=== PATIENT | male | born 1950 | race American Indian/Alaskan Native ===

== ENCOUNTER 2021-05-16 20:33 | Inpatient (IN) | payer MEDICARE, OTHER ==
[~2021-05-16] VITALS: Ht 165.1 cm; Wt 81.6 kg
[2021-05-16] MEDS ORDERED: ACETAMINOPHEN 325MG TABLET PO STA (21:59)
[2021-05-16] MEDS ORDERED: SODIUM CHLORIDE 0.9% 1000ML BAG (SEPSIS BOLUS) IV ONE (22:00)
[2021-05-16] MEDS ORDERED: AZITHROMYCIN 500 MG in DEXT 5% WATER 250 ML IV ONE (22:00)
[2021-05-16] MEDS ORDERED: CEFTRIAXONE 1 G PREMIX 50 ML IV ONE (22:00)
[2021-05-17] VITALS (22 sets, daily range): BP systolic 100–149; BP diastolic 57–78
[2021-05-17 00:09] LABS: BASOPHILS % 0.3 % (0.0-2.0); EOSINOPHILS % 0.4 % (0.0-5.0); HEMATOCRIT. 32.8 % (42.0-52.0); HEMOGLOBIN. 10.6 g/dL (14.0-18.0); LYMPHOCYTES % 16.7 % (20.0-50.0); MEAN CORPUSCULAR HEMOGLOBIN 32.7 pg (28.0-32.0); MEAN PLATELET VOLUME 8.5 fl (7.4-10.4); MONOCYTES % 9.7 % (2.0-8.0); NEUTROPHILS % 72.9 % (40.0-76.0); PLATELET 180 x1000/uL (130-400); RED BLOOD CELL COUNT 3.25 mill/uL (4.7-6.1); RED CELL DISTRIBUTION WIDTH 15.5 % (11.6-14.6)
[2021-05-17 00:19] LABS: INR 1.1; PROTHROMBIN TIME 11.8 sec (9.6-11.0)
[2021-05-17 00:25] LABS: CHLORIDE 110 mEq/L (98-107)
[2021-05-17] MEDS ORDERED: LIDOCAINE HCL 1% 20ML VIAL (Pyxis) INJ INFIL ONE (01:00)
[2021-05-17] MEDS ORDERED: DEXTROSE 50% WATER 50ML SYRINGE IV ONE (01:00)
[2021-05-17] MEDS ORDERED: CALCIUM GLUCONATE 1GM PREMIX 50 ML IV ONE (01:00)
[2021-05-17] MEDS ORDERED: ALBUTEROL (0.083%) 2.5MG/3ML NEB HHN ONE (01:00)
[2021-05-17] MEDS ORDERED: SODIUM BICARBONATE 8.4% 1 MEQ/ML 50ML SYR IV ONE (01:00)
[2021-05-17] MEDS ORDERED: INSULIN REGULAR (HUMULIN R) 300UNITS/3ML VIAL IV ONE (01:00)
[2021-05-17] MEDS ORDERED: SODIUM BICARBONATE 8.4% 1 MEQ/ML 50ML SYR IV SCH (02:00)
[2021-05-17] MEDS ORDERED: SODIUM BICARBONATE 100 MEQ in DEXTROSE 5% WATER 1,000 ML IV SCH (03:00)
[2021-05-17 03:42] LABS: BG BASE EXCESS -13.6 mmol/L (-2.0-2.0); BG CARBOXYHEMOGLOBIN 0.3 % (0.5-1.5); BG HCO3 ACT 12.5 mmol/L (22.0-26.0); BG METHEMOGLOBIN 0.3 % (0.0-1.5); BG OXYHEMOGLOBIN 92.4 % (94.0-97.0); BG PCO2 29.7 mmHg (35.0-45.0); BG PH 7.241 (7.350-7.450); BG PO2 72.2 mmHg (75.0-100.0); BG SAMPLE SITE RIGHT BRACHIAL; BG TOTAL HEMOGLOBIN 9.9 g/dL (12.0-18.0); BG VENT MODE ROOM AIR
[2021-05-17 04:01] LABS: PHOSPHORUS 11.4 mg/dL (2.5-4.9)
[2021-05-17 04:33] LABS: PROSTRATE SPECIFIC AG TOTAL 10.15 ng/mL (0.0-4.0)
[2021-05-17] MEDS ORDERED: SODIUM BICARBONATE 8.4% MEQ/ML 50ML VIAL IV ONE (04:47)
[2021-05-17] MEDS ORDERED: NOREPINEPHRINE 8 MG in DEXTROSE 5% WATER 250 ML IV PRN (05:30)
[2021-05-17 05:36] LABS: CLARITY URINE CLEAR (CLEAR); COLOR URINE YELLOW (YELLOW); KETONES URINE TRACE (NEGATIVE); LEUKOCYTE ESTERASE URINE NEGATIVE (NEGATIVE); NITRITE URINE NEGATIVE (NEGATIVE); OCCULT BLOOD URINE 1+ (NEGATIVE); PROTEIN URINE 1+ (NEGATIVE); SPECIFIC GRAVITY URINE 1.017 (1.005-1.030)
[2021-05-17] MEDS ORDERED: ALBUTEROL (0.083%) 2.5MG/3ML NEB HHN SCH (06:00)
[2021-05-17 07:29] LABS: HEPATITIS B SURFACE ANTIGEN NEGATIVE
[2021-05-17] MEDS ORDERED: LORAZEPAM 2MG/ML CPJ IV NR (09:45)
[2021-05-17] MEDS ORDERED: LIDOCAINE HCL 1% 20ML VIAL (Pyxis) INJ ONE (09:57)
[2021-05-17] MEDS ORDERED: LISI20TA31 PO (18:38)
[2021-05-17] MEDS ORDERED: FURO20TA4 PO (18:38)
[2021-05-17] MEDS ORDERED: ALLO100T PO (18:38)
[2021-05-17] MEDS ORDERED: SERT-112 PO (18:38)
[2021-05-17] MEDS ORDERED: ATOR-2 PO (18:38)
[2021-05-17] MEDS: SODIUM BICARBONATE 100 MEQ in DEXTROSE 5% WATER 1,000 ML IV SCH (22:34)
[2021-05-18] VITALS (12 sets, daily range): BP systolic 114–153; BP diastolic 69–84
[2021-05-18] MEDS: SODIUM BICARBONATE 100 MEQ in DEXTROSE 5% WATER 1,000 ML IV SCH (07:00)
[2021-05-18 07:20] LABS: BASOPHILS % 0.2 % (0.0-2.0); EOSINOPHILS % 0.9 % (0.0-5.0); HEMATOCRIT. 28.7 % (42.0-52.0); HEMOGLOBIN. 9.9 g/dL (14.0-18.0); LYMPHOCYTES % 15.5 % (20.0-50.0); MEAN CORPUSCULAR HEMOGLOBIN 33.1 pg (28.0-32.0); MEAN CORPUSCULAR VOLUME 95.6 fL (80.0-94.0); MEAN PLATELET VOLUME 8.1 fl (7.4-10.4); MONOCYTES % 14.4 % (2.0-8.0); PLATELET 141 x1000/uL (130-400); RED CELL DISTRIBUTION WIDTH 14.9 % (11.6-14.6)
[2021-05-18] MEDS ORDERED: POTASSIUM CHLORIDE 20MEQ/PACKET PO NR (11:15)
[2021-05-18] MEDS: SODIUM CHLORIDE 0.9% 1,000 ML IV SCH ×2 (11:55→21:00)
[2021-05-18] MEDS ORDERED: LACTULOSE 20G/30ML UDC PO PRN (13:45)
[2021-05-18] MEDS ORDERED: HYDRALAZINE 20MG/ML VIAL IV PRN (13:45)
[2021-05-18] MEDS ORDERED: ACETAMINOPHEN 650MG SUPP PR PRN (13:45)
[2021-05-18] MEDS ORDERED: ONDANSETRON HCL 4MG/2ML INJ IV PRN (13:45)
[2021-05-18] MEDS ORDERED: BISACODYL 10MG SUPP PR PRN (13:45)
[2021-05-18] MEDS ORDERED: IPRATROPIUM/ALBUTEROL 0.5-3(2.5)MG/3ML NEB HHN PRN (13:45)
[2021-05-18] MEDS ORDERED: DIPHENHYDRAMINE 50MG/ML VIAL IV PRN (13:45)
[2021-05-18] MEDS ORDERED: NALOXONE HCL 0.4MG/ML VIAL IV PRN (14:15)
[2021-05-18] MEDS: HYDROCODONE/ACETAMINOPHEN 5/325MG TABLET PO PRN (14:24)
[2021-05-18] MEDS: AMLODIPINE 5MG TABLET PO SCH (14:25)
[2021-05-18] MEDS: FAMOTIDINE 20MG TABLET PO SCH (20:59)
[2021-05-19] VITALS (12 sets, daily range): BP systolic 122–144; BP diastolic 62–91
[2021-05-19] MEDS: CEFTRIAXONE 1,000 MG in DEXTROSE 5% WATER 50 ML IV SCH ×2 (00:49→23:23)
[2021-05-19] MEDS: ACETAMINOPHEN 325MG TABLET PO PRN ×2 (03:46→09:10)
[2021-05-19] MEDS: HYDROCODONE/ACETAMINOPHEN 5/325MG TABLET PO PRN (07:30)
[2021-05-19] MEDS: SODIUM CHLORIDE 0.9% 1,000 ML IV SCH ×2 (08:04→17:56)
[2021-05-19] MEDS: AMLODIPINE 5MG TABLET PO SCH (09:33)
[2021-05-19] MEDS ORDERED: MORPHINE SULFATE 2 MG/ML CPJ (NOT FOR IM USE) IV NR ×2 (10:00→11:00)
[2021-05-19 12:09] LABS: HEMATOCRIT. 28.5 % (42.0-52.0); HEMOGLOBIN. 9.5 g/dL (14.0-18.0); MEAN CORPUSCULAR HEMOGLOBIN 32.3 pg (28.0-32.0); MEAN CORPUSCULAR VOLUME 96.7 fL (80.0-94.0); MEAN PLATELET VOLUME 7.7 fl (7.4-10.4); PLATELET 141 x1000/uL (130-400); RED BLOOD CELL COUNT 2.95 mill/uL (4.7-6.1); RED CELL DISTRIBUTION WIDTH 14.7 % (11.6-14.6)
[2021-05-19 13:17] LABS: PHOSPHORUS 2.9 mg/dL (2.5-4.9)
[2021-05-19 13:21] LABS: T4 FREE 1.02 ng/dL (0.76-1.46)
[2021-05-19] MEDS ORDERED: MAGNESIUM 4 G PREMIX 100 ML IV NR (15:00)
[2021-05-19 15:14] LABS: PHOSPHORUS 2.7 mg/dL (2.5-4.9)
[2021-05-19 17:49] LABS: PLATELET ESTIMATE NORMAL
[2021-05-19] MEDS: FAMOTIDINE 20MG TABLET PO SCH (21:08)
[2021-05-20] VITALS (12 sets, daily range): BP systolic 105–149; BP diastolic 68–92
[2021-05-20] MEDS: SODIUM CHLORIDE 0.9% 1,000 ML IV SCH (03:43)
[2021-05-20] MEDS: LORAZEPAM 2MG/ML CPJ IV PRN ×2 (04:14→21:46)
[2021-05-20] MEDS: AMLODIPINE 5MG TABLET PO SCH (09:01)
[2021-05-20 09:38] LABS: BASOPHILS % 0.6 % (0.0-2.0); EOSINOPHILS % 2.6 % (0.0-5.0); HEMATOCRIT. 26.3 % (42.0-52.0); HEMOGLOBIN. 8.9 g/dL (14.0-18.0); LYMPHOCYTES % 19.3 % (20.0-50.0); MEAN CORPUSCULAR HEMOGLOBIN 32.9 pg (28.0-32.0); MEAN CORPUSCULAR VOLUME 97.4 fL (80.0-94.0); NEUTROPHILS % 65.5 % (40.0-76.0); PLATELET 143 x1000/uL (130-400); RED CELL DISTRIBUTION WIDTH 14.7 % (11.6-14.6)
[2021-05-20 09:56] LABS: PHOSPHORUS 2.8 mg/dL (2.5-4.9)
[2021-05-20 10:18] LABS: VITAMIN B12 SERUM 557 pg/mL (211-911)
[2021-05-20] MEDS: SODIUM CHLORIDE 0.45% 1,000 ML IV SCH ×2 (11:33→21:19)
[2021-05-20] MEDS: FAMOTIDINE 20MG TABLET PO SCH (21:18)
[2021-05-20] MEDS: HYDROCODONE/ACETAMINOPHEN 5/325MG TABLET PO PRN (21:19)
[2021-05-21] VITALS (12 sets, daily range): BP systolic 125–160; BP diastolic 64–95
[2021-05-21] MEDS: CEFTRIAXONE 1,000 MG in DEXTROSE 5% WATER 50 ML IV SCH ×2 (01:03→22:50)
[2021-05-21] MEDS: HYDROCODONE/ACETAMINOPHEN 5/325MG TABLET PO PRN ×2 (01:05→16:08)
[2021-05-21] MEDS: SODIUM CHLORIDE 0.45% 1,000 ML IV SCH ×2 (06:58→17:26)
[2021-05-21 07:26] LABS: BASOPHILS % 0.8 % (0.0-2.0); EOSINOPHILS % 1.9 % (0.0-5.0); HEMATOCRIT. 27.8 % (42.0-52.0); HEMOGLOBIN. 9.4 g/dL (14.0-18.0); LYMPHOCYTES % 26.4 % (20.0-50.0); MEAN CORPUSCULAR HEMOGLOBIN 32.7 pg (28.0-32.0); MEAN CORPUSCULAR VOLUME 97.1 fL (80.0-94.0); MONOCYTES % 12.9 % (2.0-8.0); RED BLOOD CELL COUNT 2.86 mill/uL (4.7-6.1); RED CELL DISTRIBUTION WIDTH 14.8 % (11.6-14.6)
[2021-05-21] MEDS: AMLODIPINE 5MG TABLET PO SCH (08:57)
[2021-05-21 09:41] LABS: PLATELET 143 x1000/uL (130-400)
[2021-05-21] MEDS: FAMOTIDINE 20MG TABLET PO SCH (21:05)
[2021-05-22] VITALS (10 sets, daily range): BP systolic 105–161; BP diastolic 47–90
[2021-05-22] MEDS: HYDROCODONE/ACETAMINOPHEN 5/325MG TABLET PO PRN (00:35)
[2021-05-22] MEDS: SODIUM CHLORIDE 0.45% 1,000 ML IV SCH ×3 (03:07→23:05)
[2021-05-22] MEDS: AMLODIPINE 5MG TABLET PO SCH (08:19)
[2021-05-22 11:36] LABS: BASOPHILS % 0.9 % (0.0-2.0); EOSINOPHILS % 2.1 % (0.0-5.0); HEMATOCRIT. 25.8 % (42.0-52.0); HEMOGLOBIN. 9.1 g/dL (14.0-18.0); LYMPHOCYTES % 19.8 % (20.0-50.0); MEAN CORPUSCULAR HEMOGLOBIN 33.3 pg (28.0-32.0); MEAN CORPUSCULAR VOLUME 94.7 fL (80.0-94.0); MEAN PLATELET VOLUME 7.8 fl (7.4-10.4); MONOCYTES % 10.8 % (2.0-8.0); NEUTROPHILS % 66.4 % (40.0-76.0); PLATELET 150 x1000/uL (130-400); RED BLOOD CELL COUNT 2.72 mill/uL (4.7-6.1); RED CELL DISTRIBUTION WIDTH 14.5 % (11.6-14.6)
[2021-05-22] MEDS: LOPERAMIDE HCL 2MG CAPSULE PO PRN (16:39)
[2021-05-22] MEDS: FAMOTIDINE 20MG TABLET PO SCH (21:29)
[2021-05-22] MEDS: CEFTRIAXONE 1,000 MG in DEXTROSE 5% WATER 50 ML IV SCH (23:05)
[2021-05-23] VITALS (8 sets, daily range): BP systolic 134–156; BP diastolic 65–88
[2021-05-23] MEDS: ACETAMINOPHEN 325MG TABLET PO PRN (04:33)
[2021-05-23 07:19] LABS: BASOPHILS % 0.4 % (0.0-2.0); EOSINOPHILS % 2.1 % (0.0-5.0); HEMATOCRIT. 25.4 % (42.0-52.0); HEMOGLOBIN. 8.7 g/dL (14.0-18.0); LYMPHOCYTES % 16.7 % (20.0-50.0); MEAN CORPUSCULAR HEMOGLOBIN 32.9 pg (28.0-32.0); MEAN CORPUSCULAR VOLUME 96.6 fL (80.0-94.0); MEAN PLATELET VOLUME 7.5 fl (7.4-10.4); MONOCYTES % 9.4 % (2.0-8.0); NEUTROPHILS % 71.4 % (40.0-76.0); PLATELET 147 x1000/uL (130-400); RED BLOOD CELL COUNT 2.63 mill/uL (4.7-6.1); RED CELL DISTRIBUTION WIDTH 14.7 % (11.6-14.6)
[2021-05-23] MEDS: AMLODIPINE 5MG TABLET PO SCH (09:19)
[2021-05-23] MEDS: LOPERAMIDE HCL 2MG CAPSULE PO PRN (09:19)
[2021-05-23] MEDS ORDERED: VANCOMYCIN HCL 1000 MG/20 ML ORAL PO SCH ×2 (13:15→18:00)
[2021-05-23] MEDS ORDERED: VANCOMYCIN HCL 1 GM/VIAL PO SCH (18:00)
== END 2021-05-23 16:00 | disposition left against medical advice (07) | DRG 70 ==
LOC: ER 20:33 → MICUSO 05-17 01:05 → EDBEDREQTM 05-17 01:09 → EDBEDREQ 05-17 01:09 → EDBEDREQSVC 05-17 01:09 → EDBEDREQDT 05-17 01:09 → ENRESERV 05-17 08:37 → CANRESERV 05-17 08:37 → MICUSO 05-17 10:45 → 3WST 05-17 18:37
PROVIDERS: ADMIT Internal Medicine; ATTEND Internal Medicine
PROC: 06HY33Z Insertion of Infusion Device into Lower Vein, Percutaneous Approach (ICD-10-PCS; principal; 2021-05-16)
PROC: B54BZZA Ultrasonography of Right Lower Extremity Veins, Guidance (ICD-10-PCS; 2021-05-16)
PROC: 02HV33Z Insertion of Infusion Device into Superior Vena Cava, Percutaneous Approach (ICD-10-PCS; 2021-05-17)
PROC: B548ZZA Ultrasonography of Superior Vena Cava, Guidance (ICD-10-PCS; 2021-05-17)
PROC: 5A1D70Z Performance of Urinary Filtration, Intermittent, Less than 6 Hours Per Day (ICD-10-PCS; 2021-05-17)
DX: G93.41 Metabolic encephalopathy (principal); N17.0 Acute kidney failure with tubular necrosis; M62.82 Rhabdomyolysis; E87.2 Acidosis; E87.5 Hyperkalemia; B19.20 Unspecified viral hepatitis C without hepatic coma; D18.03 Hemangioma of intra-abdominal structures; D64.9 Anemia, unspecified; E83.39 Other disorders of phosphorus metabolism; F17.200 Nicotine dependence, unspecified, uncomplicated; I50.9 Heart failure, unspecified; N40.0 Benign prostatic hyperplasia without lower urinary tract symptoms; I95.9 Hypotension, unspecified; N40.1 Benign prostatic hyperplasia with lower urinary tract symptoms; R74.01 Elevation of levels of liver transaminase levels; E87.6 Hypokalemia; B18.2 Chronic viral hepatitis C; I27.20 Pulmonary hypertension, unspecified; Z20.822 Contact with and (suspected) exposure to COVID-19; M47.816 Spondylosis without myelopathy or radiculopathy, lumbar region; N31.9 Neuromuscular dysfunction of bladder, unspecified; I11.0 Hypertensive heart disease with heart failure; M48.061 Spinal stenosis, lumbar region without neurogenic claudication; Z79.899 Other long term (current) drug therapy
CPT/HCPCS: 36415; 36600; 70551; 71045; 72148; 76770; 76937; 80048; 80053; 80061; 81003; 82140; 82375; 82550; 82553; 82575; 82607; 82805; 83605; 83735; 84100; 84145; 84153; 84439; 84443; 84484; 84550; 85025; 86705; 86709; 86803; 87340; 87426; 93005; 93306; 94644; 95816; 97162; 99291; C1725; J0456; J0610; J0696; J1815; J2060; J2270; J3370; J3475; J3490; J7030; J7060; J7070; G0103

== ENCOUNTER 2023-10-04 16:59 | Emergency (ER) | payer MEDICARE, OTHER ==
[~2023-10-04] VITALS: Ht 177.8 cm; Wt 96.0 kg
[~2023-10-04 16:59] MED LIST: ALLO100T PO; ATOR-2 PO; FURO20TA4 PO; LISI20TA31 PO; SERT-112 PO
[2023-10-04 17:04] VITALS: O2SAT 100
[2023-10-04 18:13] LABS: BASOPHILS % 0.5 % (0.0-2.0); EOSINOPHILS % 3.2 % (0.0-5.0); HEMATOCRIT. 32.9 % (42.0-52.0); HEMOGLOBIN. 10.9 g/dL (14.0-18.0); LYMPHOCYTES % 31.6 % (20.0-50.0); MEAN CORPUSCULAR HEMOGLOBIN 31.8 pg (28.0-32.0); MEAN CORPUSCULAR HGB CONC 33.2 g/dL (31.0-37.0); MEAN CORPUSCULAR VOLUME 95.8 fL (80.0-94.0); MEAN PLATELET VOLUME 7.7 fl (7.4-10.4); MONOCYTES % 9.6 % (2.0-8.0); NEUTROPHILS % 55.1 % (40.0-76.0); PLATELET 181 x1000/uL (130-400); RED BLOOD CELL COUNT 3.44 mill/uL (4.7-6.1); RED CELL DISTRIBUTION WIDTH 15.8 % (11.6-14.6); WHITE BLOOD COUNT 5.5 x1000/uL (4.5-11.0)
[2023-10-04 18:28] LABS: ALANINE AMINOTRANSFERASE 30 IU/L (10-49); ALBUMIN 4.2 g/dL (3.2-4.8); ASPARTATE AMINOTRANSFERASE 29 IU/L (<34); BILIRUBIN TOTAL 0.5 mg/dL (0.1-1.0); CARBON DIOXIDE 19 mEq/L (21-32); CHLORIDE 111 mEq/L (98-107); GLUCOSE 95 mg/dL (70-105); POTASSIUM 4.5 mEq/L (3.5-5.1); PROTEIN TOTAL 7.4 g/dL (6.0-8.3); SODIUM 144 mEq/L (136-145); TROPONIN I HIGH SENSITIVITY 29 ng/L (3.0-53)
[2023-10-04 18:31] LABS: CREATININE 5.1 mg/dL (0.6-1.3); UREA NITROGEN BLOOD 104 mg/dL (9-23)
[2023-10-04 20:31] VITALS: BP 139/74; PULSE 75; RESP 16; TEMP 97.5
== END 2023-10-04 20:35 | disposition home or self-care (01) ==
LOC: ER 16:59 → CANBEDREQ 10-06 04:15
DX: I12.0 Hypertensive chronic kidney disease with stage 5 chronic kidney disease or end stage renal disease (principal); N18.6 End stage renal disease; Z49.31 Encounter for adequacy testing for hemodialysis
CPT/HCPCS: 36415; 71045; 80053; 83880; 84484; 85025; 93005; 99285

== ENCOUNTER 2023-10-25 13:54 | Inpatient (IN) | payer OTHER, MEDICARE ==
[~2023-10-25] VITALS: Ht 175.3 cm; Wt 99.8 kg
[2023-10-25 14:15] VITALS: O2SAT 95
[2023-10-25 16:09] LABS: BASOPHILS % 0.3 % (0.0-2.0); EOSINOPHILS % 0.3 % (0.0-5.0); HEMATOCRIT. 36.9 % (42.0-52.0); HEMOGLOBIN. 12.2 g/dL (14.0-18.0); LYMPHOCYTES % 12.1 % (20.0-50.0); MEAN CORPUSCULAR HEMOGLOBIN 32.1 pg (28.0-32.0); MEAN CORPUSCULAR HGB CONC 33.1 g/dL (31.0-37.0); MONOCYTES % 10.2 % (2.0-8.0); NEUTROPHILS % 77.1 % (40.0-76.0); PLATELET 167 x1000/uL (130-400); RED BLOOD CELL COUNT 3.81 mill/uL (4.7-6.1); RED CELL DISTRIBUTION WIDTH 15.5 % (11.6-14.6); WHITE BLOOD COUNT 8.7 x1000/uL (4.5-11.0)
[2023-10-25 16:23] LABS: ALANINE AMINOTRANSFERASE 25 IU/L (10-49); ALBUMIN 4.3 g/dL (3.2-4.8); ASPARTATE AMINOTRANSFERASE 29 IU/L (<34); BILIRUBIN TOTAL 0.6 mg/dL (0.1-1.0); CALCIUM 8.5 mg/dL (8.7-10.4); CARBON DIOXIDE 18 mEq/L (21-32); CHLORIDE 101 mEq/L (98-107); GLUCOSE 142 mg/dL (70-105); PHOSPHORUS 6.5 mg/dL (2.5-4.9); POTASSIUM 4.1 mEq/L (3.5-5.1); PROTEIN TOTAL 6.8 g/dL (6.0-8.3); SODIUM 133 mEq/L (136-145); UREA NITROGEN BLOOD 72 mg/dL (9-23)
[2023-10-25 16:32] LABS: INR 1.1; PROTHROMBIN TIME 11.4 sec (9.6-11.0)
[2023-10-25 16:35] LABS: CREATININE 6.4 mg/dL (0.6-1.3)
[2023-10-26] VITALS (13 sets, daily range): BP systolic 97–135; BP diastolic 55–90; PULSE 76–100; RESP 16–20; TEMP 96.1–97.9
[2023-10-26] MEDS ORDERED: ENOXAPARIN 40MG/0.4ML SYR SUBCUT SCH (10:00)
[2023-10-26] MEDS ORDERED: MIDO5TAB4 MT (10:10)
[2023-10-26] MEDS ORDERED: APIX2.5T PO (10:10)
[2023-10-26] MEDS ORDERED: ONDANSETRON HCL 4MG/2ML INJ IV PRN (10:45)
[2023-10-26] MEDS ORDERED: ACETAMINOPHEN 325MG TABLET PO PRN ×2 (10:45)
[2023-10-26] MEDS ORDERED: IPRATROPIUM/ALBUTEROL 0.5-3(2.5)MG/3ML NEB HHN PRN (10:45)
[2023-10-26] MEDS ORDERED: PANTOPRAZOLE SODIUM 40 MG/VIAL IV SCH (10:45)
[2023-10-26] MEDS ORDERED: DOCUSATE SODIUM 100MG CAPSULE PO PRN (10:45)
[2023-10-26] MEDS ORDERED: CLONIDINE 0.1MG TABLET PO PRN (10:45)
[2023-10-26] MEDS ORDERED: SERTRALINE HCL 100MG TABLET PO SCH (12:00)
[2023-10-26] MEDS ORDERED: *PATIENT'S OWN MEDICATION STORAGE XX SCH (14:00)
[2023-10-26] MEDS ORDERED: PNEUMOCOCCAL 23-VAL P-SAC VAC 0.5 ML IM ONE (15:00)
[2023-10-26] MEDS ORDERED: INFLUENZA VACCINE 05/PF 0.5 ML SYRINGE IM ONE (15:00)
[2023-10-26] MEDS ORDERED: APIXABAN 2.5 MG TABLET PO SCH (17:00)
[2023-10-26] MEDS ORDERED: ATORVASTATIN CALCIUM 40MG TABLET PO SCH (21:00)
[2023-10-27] MEDS ORDERED: ALLOPURINOL 100 MG TABLET PO SCH (09:00)
== END 2023-10-26 14:58 | disposition left against medical advice (07) | DRG 682 ==
LOC: ER 13:54 → EDBEDREQTM 18:29 → EDBEDREQ 18:29 → 6EST 10-26 01:49
PROVIDERS: ADMIT Internal Medicine; ATTEND Internal Medicine
PROC: 5A1D70Z Performance of Urinary Filtration, Intermittent, Less than 6 Hours Per Day (ICD-10-PCS; principal; 2023-10-26)
DX: I12.0 Hypertensive chronic kidney disease with stage 5 chronic kidney disease or end stage renal disease (principal); N18.6 End stage renal disease; I47.10 Supraventricular tachycardia, unspecified; E87.1 Hypo-osmolality and hyponatremia; R53.1 Weakness; I27.20 Pulmonary hypertension, unspecified; Z53.29 Procedure and treatment not carried out because of patient's decision for other reasons; N40.0 Benign prostatic hyperplasia without lower urinary tract symptoms; E78.5 Hyperlipidemia, unspecified; R73.9 Hyperglycemia, unspecified; D64.9 Anemia, unspecified; G89.29 Other chronic pain; F11.10 Opioid abuse, uncomplicated; Z79.01 Long term (current) use of anticoagulants; Z91.199 Patient's noncompliance with other medical treatment and regimen due to unspecified reason; Z99.2 Dependence on renal dialysis; R06.03 Acute respiratory distress
CPT/HCPCS: 36415; 80053; 83735; 83880; 84100; 85025; 90935; 99285; C9113

== ENCOUNTER 2025-01-02 10:51 | Inpatient (IN) | payer BC, MEDICARE ==
[~2025-01-02] VITALS: Ht 152.4 cm; Wt 95.5 kg
[~2025-01-02 10:51] MED LIST changes: +APIX2.5T PO; +MIDO5TAB4 MT
[2025-01-02] MEDS: PIPERACILLIN/TAZO 3.375G/50ML 50 ML IV ONE (11:25)
[2025-01-02 11:32] LABS: HEMATOCRIT. 29.4 % (42.0-52.0); HEMOGLOBIN. 9.4 g/dL (14.0-18.0); MEAN CORPUSCULAR HEMOGLOBIN 30.7 pg (28.0-32.0); MEAN CORPUSCULAR HGB CONC 31.9 g/dL (31.0-37.0); MEAN CORPUSCULAR VOLUME 96.2 fL (80.0-94.0); MEAN PLATELET VOLUME 7.3 fl (7.4-10.4); PLATELET 408 x1000/uL (130-400); RED BLOOD CELL COUNT 3.06 mill/uL (4.7-6.1); RED CELL DISTRIBUTION WIDTH 17.5 % (11.6-14.6); WHITE BLOOD COUNT 8.2 x1000/uL (4.5-11.0)
[2025-01-02 11:43] LABS: DIFFERENTIAL COMMENT 1
[2025-01-02 11:47] LABS: CHLORIDE 113 mEq/L (98-107)
[2025-01-02 11:48] LABS: CALCIUM 8.9 mg/dL (8.7-10.4); CARBON DIOXIDE 17 mEq/L (21-32)
[2025-01-02 11:53] LABS: GLUCOSE 124 mg/dL (70-105); INR 1.3; PROTHROMBIN TIME 13.9 sec (9.6-11.0)
[2025-01-02 11:54] LABS: TROPONIN I HIGH SENSITIVITY 37 ng/L (3.0-53)
[2025-01-02 11:55] LABS: ALBUMIN 3.4 g/dL (3.2-4.8); ASPARTATE AMINOTRANSFERASE 75 IU/L (<34); BILIRUBIN DIRECT 0.3 mg/dL (<=3.0); CREATINE KINASE 137 IU/L (46-171)
[2025-01-02 11:56] LABS: BILIRUBIN TOTAL 0.5 mg/dL (0.1-1.0); PROTEIN TOTAL 6.9 g/dL (6.0-8.3)
[2025-01-02] MEDS: VANCOMYCIN 1G PREMIX 200 ML IV ONE (12:05)
[2025-01-02 12:21] LABS: ALANINE AMINOTRANSFERASE 51 IU/L (10-49); ETHANOL BLOOD < 10 mg/dL (<10); SODIUM 147 mEq/L (136-145)
[2025-01-02 12:40] LABS: CREATININE 13.9 mg/dL (0.6-1.3); POTASSIUM 8.7 mEq/L (3.5-5.1); UREA NITROGEN BLOOD 144 mg/dL (9-23)
[2025-01-02 12:47] LABS: ANISOCYTOSIS 1+; PLATELET ESTIMATE SLIGHTLY INCREASED
[2025-01-02 13:41] LABS: CALCIUM 9.2 mg/dL (8.7-10.4)
[2025-01-02 13:56] LABS: POTASSIUM 6.2 mEq/L (3.5-5.1)
[2025-01-02] MEDS: SODIUM CHLORIDE 0.9% 250 ML IV ONE (14:00)
[2025-01-02] MEDS: CALCIUM GLUCONATE 1GM PREMIX 50 ML IV ONE ×2 (14:09→14:22)
[2025-01-02] MEDS: DEXTROSE 50% WATER 50ML SYRINGE IV ONE (14:12)
[2025-01-02 14:13] VITALS: PULSE 93; RESP 18; O2SAT 94
[2025-01-02] MEDS: INSULIN REGULAR (HUMULIN R) 1000UNITS/10ML VIAL IV ONE (14:13)
[2025-01-02] MEDS: SODIUM ZIRCONIUM CYCLOSILICATE 10GM/PACKET PO ONE (14:21)
[2025-01-02] MEDS: ALBUTEROL (0.083%) 2.5MG/3ML NEB HHN ONE (14:22)
[2025-01-02 14:37] LABS: GLUCOSE URINE NEGATIVE (NEGATIVE); KETONES URINE TRACE (NEGATIVE)
[2025-01-02 15:16] LABS: CLARITY URINE HAZY (CLEAR); COLOR URINE DARK YELLOW (YELLOW); PH URINE 5.5 (4.5-8.0); PROTEIN URINE 4+ (NEGATIVE); SPECIFIC GRAVITY URINE 1.026 (1.005-1.030)
[2025-01-02 15:17] LABS: LEUKOCYTE ESTERASE URINE NEGATIVE (NEGATIVE); NITRITE URINE NEGATIVE (NEGATIVE); OCCULT BLOOD URINE 3+ (NEGATIVE); UROBILINOGEN URINE 0.2 E.U./dL (0.2-1.0)
[2025-01-02 15:18] LABS: *AMPHETAMINES SCREEN URINE NEGATIVE (NEGATIVE); *BARBITURATES SCREEN URINE NEGATIVE (NEGATIVE); *BENZODIAZEPINES SCREEN URINE NEGATIVE (NEGATIVE); *COCAINE SCREEN URINE PRESUMPTIVE POSITIVE (NEGATIVE); METHADONE URINE SCREEN NEGATIVE (NEGATIVE); OPIATES URINE SCREEN PRESUMPTIVE POSITIVE (NEGATIVE)
[2025-01-02 15:19] LABS: CANNABINOID URINE SCREEN NEGATIVE (NEGATIVE); ECSTASY MDMA SCREEN URINE NEGATIVE (NEGATIVE); PHENCYCLIDINE URINE SCREEN NEGATIVE (NEGATIVE)
[2025-01-02 15:59] LABS: BACTERIA URINE 4+; RBC URINE 25-50 /hpf (0-2); SQUAMOUS EPITHELIAL CELL URINE 3+ /lpf (RARE/1+); YEAST URINE NONE SEEN
[2025-01-02 16:00] VITALS: BP 134/73; PULSE 98; RESP 18; TEMP 36.4; O2SAT 95
[2025-01-02 16:51] VITALS: BP 134/73; PULSE 98; RESP 19; TEMP 36.4
[2025-01-02] MEDS: ALLOPURINOL 100 MG TABLET PO SCH (18:00)
[2025-01-02] MEDS: FUROSEMIDE 40MG/4ML VIAL IVP ONE (18:45)
[2025-01-02] MEDS ORDERED: APIX2.5T PO (19:24)
[2025-01-02] MEDS ORDERED: ATOR-2 PO (19:24)
[2025-01-02 20:00] VITALS: BP 107/49; PULSE 102; RESP 16; TEMP 36.5; O2SAT 92
[2025-01-02] MEDS: APIXABAN 2.5 MG TABLET PO SCH (22:50)
[2025-01-03] VITALS: BP 100/47; PULSE 101; RESP 16; TEMP 36.5; O2SAT 94
[2025-01-03 04:00] VITALS: BP 114/48; PULSE 101; RESP 18; TEMP 36.7; O2SAT 97
[2025-01-03] MEDS: PIPERACILLIN/TAZO 3.375G/50ML 50 ML IV SCH (08:46)
[2025-01-03 09:00] VITALS: BP 95/59; PULSE 103; RESP 20; TEMP 36.7; O2SAT 95
[2025-01-03] MEDS ORDERED: VANCOMYCIN 500MG/100ML IV NR (10:00)
[2025-01-03] MEDS ORDERED: SODIUM ZIRCONIUM CYCLOSILICATE 10GM/PACKET PO NR (11:30)
[2025-01-03 12:00] VITALS: BP 112/61; PULSE 91; RESP 18; TEMP 36; O2SAT 91
[2025-01-03] MEDS: PANTOPRAZOLE SODIUM 40 MG/VIAL IV SCH (12:16)
[2025-01-03] MEDS: VANCOMYCIN 750MG/150ML (BAXTER) IV NR (15:07)
[2025-01-03] MEDS: FUROSEMIDE 100MG/10ML VIAL IVP SCH (15:07)
[2025-01-03 16:00] VITALS: BP 115/63; PULSE 104; RESP 18; TEMP 36.4; O2SAT 94
[2025-01-03 16:54] LABS: HEMATOCRIT. 26.6 % (42.0-52.0); MEAN CORPUSCULAR HEMOGLOBIN 30.7 pg (28.0-32.0); MEAN CORPUSCULAR HGB CONC 30.1 g/dL (31.0-37.0); MEAN CORPUSCULAR VOLUME 102.1 fL (80.0-94.0); MEAN PLATELET VOLUME 7.2 fl (7.4-10.4); PLATELET 261 x1000/uL (130-400); RED CELL DISTRIBUTION WIDTH 18.7 % (11.6-14.6); WHITE BLOOD COUNT 15.1 x1000/uL (4.5-11.0)
[2025-01-03 16:55] LABS: DIFFERENTIAL COMMENT 1
[2025-01-03 17:03] LABS: POTASSIUM 6.1 mEq/L (3.5-5.1)
[2025-01-03 17:05] LABS: CALCIUM 8.2 mg/dL (8.7-10.4)
[2025-01-03] MEDS: SODIUM ZIRCONIUM CYCLOSILICATE 10GM/PACKET PO NR (17:10)
[2025-01-03] MEDS: SODIUM BICARBONATE 650MG TABLET PO SCH (17:10)
[2025-01-03 17:13] LABS: ANISOCYTOSIS 1+; PLATELET ESTIMATE NORMAL
[2025-01-03 17:18] LABS: CREATININE 15.6 mg/dL (0.6-1.3)
[2025-01-03] MEDS: DEXT 5%/0.9% NACL 1,000 ML IV SCH (18:13)
[2025-01-03 20:00] VITALS: BP 149/72; PULSE 83; RESP 26; TEMP 36.3; O2SAT 96
[2025-01-04] VITALS (14 sets, daily range): BP systolic 63–144; BP diastolic 48–94; PULSE 76–105; RESP 15–29; TEMP 36.00288–37.4; O2SAT 92–99
[2025-01-04] MEDS ORDERED: LIDOCAINE HCL 1% 10 MG/ML 10ML VIAL ONE (09:53)
[2025-01-04] MEDS ORDERED: LIDOCAINE HCL/PF 1% 10 MG/ML 5ML VIAL ONE (09:53)
[2025-01-04] MEDS ORDERED: IOHEXOL-300 50 ML BOTTLE IV ONE (10:04)
[2025-01-04] MEDS ORDERED: HEPARIN 1000 UNITS/ML 10ML ONE (10:51)
[2025-01-04 12:44] LABS: HEMATOCRIT 25.9 % (42.0-52.0); HEMOGLOBIN 8.1 g/dL (14.0-18.0); MEAN CORPUSCULAR HEMOGLOBIN 30.2 pg (28.0-32.0); MEAN CORPUSCULAR HGB CONC 31.3 g/dL (31.0-37.0); PLATELET 267 x1000/uL (130-400); RED BLOOD CELL COUNT 2.69 mill/uL (4.7-6.1); RED CELL DISTRIBUTION WIDTH 17.8 % (11.6-14.6); WHITE BLOOD COUNT 9.1 x1000/uL (4.5-11.0)
[2025-01-04 13:00] LABS: CHLORIDE 115 mEq/L (98-107); POTASSIUM 5.6 mEq/L (3.5-5.1); SODIUM 151 mEq/L (136-145)
[2025-01-04 13:01] LABS: CARBON DIOXIDE 18 mEq/L (21-32)
[2025-01-04 13:06] LABS: GLUCOSE 103 mg/dL (70-105)
[2025-01-04 13:08] LABS: ALANINE AMINOTRANSFERASE 35 IU/L (10-49); ASPARTATE AMINOTRANSFERASE 44 IU/L (<34); BILIRUBIN TOTAL 0.2 mg/dL (0.1-1.0)
[2025-01-04 13:09] LABS: PROTEIN TOTAL 6.2 g/dL (6.0-8.3)
[2025-01-04 13:31] LABS: HEPATITIS B SURFACE ANTIGEN NEGATIVE (Negative)
[2025-01-04 13:52] LABS: HEPATITIS A AB IGM NEGATIVE (Negative); HEPATITIS B CORE AB IGM NEGATIVE (Negative)
[2025-01-04 13:53] LABS: HEPATITIS C AB REACTIVE (Pos) (Negative)
[2025-01-04 13:56] LABS: MEAN CORPUSCULAR VOLUME 96.3 fL (80.0-94.0)
[2025-01-04 15:12] LABS: CREATININE 15.7 mg/dL (0.6-1.3)
[2025-01-04 15:13] LABS: UREA NITROGEN BLOOD > 150 mg/dL (9-23)
[2025-01-04] MEDS: ALBUMIN HUMAN 25GM/100ML (25%) IV NR (16:29)
[2025-01-04] MEDS: LACTULOSE 20G/30ML UDC PO SCH (22:00)
[2025-01-04 22:27] LABS: AMMONIA < 17 uMol/L (<32)
[2025-01-04] MEDS ORDERED: METOPROLOL TARTRATE 5MG/5ML VIAL IV NR (23:45)
[2025-01-05] VITALS (23 sets, daily range): BP systolic 89–154; BP diastolic 55–123; PULSE 73–106; RESP 13–20; TEMP 36.4–37.6; O2SAT 96–100
[2025-01-05] MEDS: VANCOMYCIN 500MG PREMIX 100 ML IV SCH (12:08)
[2025-01-05 18:28] LABS: BG BASE EXCESS -0.6 mmol/L (-2.0-3.0); BG CARBOXYHEMOGLOBIN 0.3 % (0.5-1.5); BG DEOXYHEMOGLOBIN 1.7 % (0.0-5.0); BG FRACTION INSPIRED OXYGEN 36; BG HCO3 ACT 24.4 mmol/L (21.0-28.0); BG METHEMOGLOBIN 0.3 % (0.5-1.5); BG OXYGEN SATURATION 98.3 % (94.0-98.0); BG OXYHEMOGLOBIN 97.7 % (94.0-98.0); BG PCO2 41.6 mmHg (35.0-48.0); BG PH 7.387 (7.350-7.450); BG PO2 110.9 mmHg (83.0-108.0); BG SAMPLE SITE LEFT RADIAL; BG TOTAL HEMOGLOBIN 10.5 g/dL (13.5-17.5); BG VENT MODE NASAL CANNULA
[2025-01-05] MEDS: EPOETIN ALFA-EPBX 4,000 UNIT/ML VIAL SUBCUT SCH (20:56)
[2025-01-05] MEDS: LORAZEPAM 2MG/ML UD SYRINGE IV PRN (21:46)
[2025-01-06] VITALS (11 sets, daily range): BP systolic 119–156; BP diastolic 67–86; PULSE 75–102; RESP 14–18; TEMP 36.9–37.2; O2SAT 98–100
[2025-01-06 06:35] LABS: HEMATOCRIT. 23.8 % (42.0-52.0); HEMOGLOBIN. 7.7 g/dL (14.0-18.0); MEAN CORPUSCULAR HEMOGLOBIN 30.4 pg (28.0-32.0); MEAN CORPUSCULAR HGB CONC 32.4 g/dL (31.0-37.0); MEAN CORPUSCULAR VOLUME 93.9 fL (80.0-94.0); MEAN PLATELET VOLUME 8.1 fl (7.4-10.4); PLATELET 179 x1000/uL (130-400); RED BLOOD CELL COUNT 2.53 mill/uL (4.7-6.1); RED CELL DISTRIBUTION WIDTH 17.4 % (11.6-14.6); WHITE BLOOD COUNT 9.5 x1000/uL (4.5-11.0)
[2025-01-06 06:57] LABS: POTASSIUM 3.5 mEq/L (3.5-5.1)
[2025-01-06 06:58] LABS: CALCIUM 8.4 mg/dL (8.7-10.4)
[2025-01-06 07:16] LABS: DIFFERENTIAL COMMENT 1
[2025-01-06 08:06] LABS: CREATININE 8.5 mg/dL (0.6-1.3)
[2025-01-06] MEDS: FAMOTIDINE 20MG/2ML VIAL IV SCH (10:18)
[2025-01-06 17:27] LABS: ANISOCYTOSIS 1+; PLATELET ESTIMATE NORMAL
[2025-01-06] MEDS ORDERED: CEFAZOLIN 2GM/100ML 100 ML IV SCH (21:00)
[2025-01-07] VITALS (18 sets, daily range): BP systolic 131–173; BP diastolic 68–100; PULSE 67–94; RESP 12–19; TEMP 36.3–36.7; O2SAT 98–100
[2025-01-07] MEDS: CEFAZOLIN 1000MG PREMIX 50 ML IV SCH (02:31)
[2025-01-07] MEDS ORDERED: LIDOCAINE HCL 1% 10 MG/ML 10ML VIAL ONE (12:28)
[2025-01-07 15:43] LABS: BG BASE EXCESS -4.6 mmol/L (-2.0-3.0); BG CARBOXYHEMOGLOBIN 0.5 % (0.5-1.5); BG DEOXYHEMOGLOBIN 3.9 % (0.0-5.0); BG FRACTION INSPIRED OXYGEN 36; BG HCO3 ACT 21.1 mmol/L (21.0-28.0); BG METHEMOGLOBIN 0.2 % (0.5-1.5); BG OXYGEN SATURATION 96.1 % (94.0-98.0); BG OXYHEMOGLOBIN 95.4 % (94.0-98.0); BG PCO2 41.7 mmHg (35.0-48.0); BG PH 7.323 (7.350-7.450); BG PO2 89.4 mmHg (83.0-108.0); BG SAMPLE SITE RIGHT RADIAL; BG TOTAL HEMOGLOBIN 9.5 g/dL (13.5-17.5); BG VENT MODE NASAL CANNULA
[2025-01-08] VITALS (19 sets, daily range): BP systolic 139–160; BP diastolic 74–93; PULSE 67–90; RESP 12–24; TEMP 36.2–37.1; O2SAT 97–100
[2025-01-08 05:56] LABS: BASOPHILS % 0.2 % (0.0-2.0); HEMATOCRIT. 26.1 % (42.0-52.0); HEMOGLOBIN. 8.3 g/dL (14.0-18.0); LYMPHOCYTES % 10.6 % (20.0-50.0); MEAN CORPUSCULAR HEMOGLOBIN 29.9 pg (28.0-32.0); MEAN CORPUSCULAR HGB CONC 31.7 g/dL (31.0-37.0); MEAN CORPUSCULAR VOLUME 94.3 fL (80.0-94.0); MEAN PLATELET VOLUME 8.5 fl (7.4-10.4); MONOCYTES % 11.4 % (2.0-8.0); NEUTROPHILS % 76.8 % (40.0-76.0); PLATELET 158 x1000/uL (130-400); RED BLOOD CELL COUNT 2.77 mill/uL (4.7-6.1); RED CELL DISTRIBUTION WIDTH 16.4 % (11.6-14.6); WHITE BLOOD COUNT 7.6 x1000/uL (4.5-11.0)
[2025-01-08 06:15] LABS: POTASSIUM 3.6 mEq/L (3.5-5.1)
[2025-01-08 06:16] LABS: CALCIUM 8.7 mg/dL (8.7-10.4)
[2025-01-08 06:47] LABS: CREATININE 7.4 mg/dL (0.6-1.3)
[2025-01-08] MEDS ORDERED: LIDOCAINE 2% 6ML GLYDO MM ONE (08:30)
[2025-01-08] MEDS ORDERED: TETRACAINE/BENZOCAINE/BUTAMBEN 20 GM SPRAY MM ONE (08:31)
[2025-01-08] MEDS ORDERED: FENTANYL CITRATE/PF 50MCG/ML 2ML VIAL ONE (09:01)
[2025-01-08] MEDS ORDERED: MIDAZOLAM HCL 2 MG/2 ML VIAL ONE (09:01)
[2025-01-09] VITALS (22 sets, daily range): BP systolic 101–162; BP diastolic 72–96; PULSE 68–115; RESP 14–25; TEMP 36.4–37.4; O2SAT 95–99
[2025-01-09 06:52] LABS: CARBON DIOXIDE 24 mEq/L (21-32); CHLORIDE 106 mEq/L (98-107); SODIUM 144 mEq/L (136-145)
[2025-01-09 06:53] LABS: CALCIUM 8.8 mg/dL (8.7-10.4)
[2025-01-09 06:58] LABS: GLUCOSE 105 mg/dL (70-105); UREA NITROGEN BLOOD 48 mg/dL (9-23)
[2025-01-09 07:00] LABS: PHOSPHORUS 5.5 mg/dL (2.5-4.9)
[2025-01-09 07:19] LABS: BASOPHILS % 0.3 % (0.0-2.0); EOSINOPHILS % 0.7 % (0.0-5.0); HEMATOCRIT. 23.8 % (42.0-52.0); HEMOGLOBIN. 7.8 g/dL (14.0-18.0); LYMPHOCYTES % 8.8 % (20.0-50.0); MEAN CORPUSCULAR HEMOGLOBIN 30.9 pg (28.0-32.0); MEAN CORPUSCULAR HGB CONC 32.8 g/dL (31.0-37.0); MEAN CORPUSCULAR VOLUME 94.2 fL (80.0-94.0); MEAN PLATELET VOLUME 8.5 fl (7.4-10.4); MONOCYTES % 10.3 % (2.0-8.0); NEUTROPHILS % 79.9 % (40.0-76.0); PLATELET 172 x1000/uL (130-400); RED BLOOD CELL COUNT 2.52 mill/uL (4.7-6.1); RED CELL DISTRIBUTION WIDTH 16.3 % (11.6-14.6); WHITE BLOOD COUNT 9.3 x1000/uL (4.5-11.0)
[2025-01-09 07:27] LABS: CREATININE 9.5 mg/dL (0.6-1.3)
[2025-01-09] MEDS: POTASSIUM CHLORIDE 20MEQ/PACKET PO NR (09:18)
[2025-01-09] MEDS: DILTIAZEM HCL 5MG/ML 5ML VIAL IV NR (22:53)
[2025-01-09] MEDS ORDERED: AMIODARONE 360MG/200ML 200 ML IV SCH (23:45)
[2025-01-10] VITALS (12 sets, daily range): BP systolic 114–154; BP diastolic 73–100; PULSE 65–178; RESP 14–27; TEMP 36.2–37.8; O2SAT 97–100
[2025-01-10] MEDS: AMIODARONE HCL 900 MG in DEXT 5% WATER 500 ML IV SCH (00:48)
[2025-01-11] VITALS: BP 150/91; PULSE 71; RESP 26; TEMP 37.1; O2SAT 100
[2025-01-11] MEDS: MORPHINE SULFATE 2 MG/ML INJ (NOT FOR IM USE) IV PRN (03:26)
[2025-01-11 04:00] VITALS: BP 153/76; PULSE 63; RESP 26; TEMP 36.9; O2SAT 100
[2025-01-11 08:00] VITALS: BP 138/75; PULSE 64; RESP 15; TEMP 36.4; O2SAT 98
[2025-01-11 12:00] VITALS: BP 125/72; PULSE 68; RESP 22
[2025-01-11] MEDS ORDERED: NALOXONE HCL 0.4MG/ML VIAL IV PRN (14:30)
[2025-01-11 16:00] VITALS: BP 158/87; PULSE 75; RESP 20; TEMP 36.4; O2SAT 99
[2025-01-11 20:00] VITALS: BP 154/79; PULSE 74; RESP 19; TEMP 38.4; O2SAT 97
[2025-01-12] VITALS (14 sets, daily range): BP systolic 101–171; BP diastolic 60–102; PULSE 67–117; RESP 16–19; TEMP 35.7–37.7; O2SAT 97–99
[2025-01-12] MEDS: DILTIAZEM HCL 60MG TABLET PO SCH (12:13)
[2025-01-12] MEDS: DILTIAZEM HCL 5MG/ML 5ML VIAL IV NR (12:14)
[2025-01-12 13:52] LABS: HEMATOCRIT. 25.7 % (42.0-52.0); HEMOGLOBIN. 8.3 g/dL (14.0-18.0); MEAN CORPUSCULAR HEMOGLOBIN 30.6 pg (28.0-32.0); MEAN CORPUSCULAR HGB CONC 32.2 g/dL (31.0-37.0); MEAN CORPUSCULAR VOLUME 95.3 fL (80.0-94.0); MEAN PLATELET VOLUME 8.1 fl (7.4-10.4); PLATELET 241 x1000/uL (130-400); RED CELL DISTRIBUTION WIDTH 16.3 % (11.6-14.6); WHITE BLOOD COUNT 10.9 x1000/uL (4.5-11.0)
[2025-01-12 13:57] LABS: DIFFERENTIAL COMMENT 1
[2025-01-12 14:00] LABS: POTASSIUM 2.9 mEq/L (3.5-5.1)
[2025-01-12 14:02] LABS: CALCIUM 8.1 mg/dL (8.7-10.4)
[2025-01-12 14:48] LABS: CREATININE 8.4 mg/dL (0.6-1.3)
[2025-01-12 14:49] LABS: ANISOCYTOSIS 1+; PLATELET ESTIMATE NORMAL
[2025-01-12] MEDS: POTASSIUM CHLORIDE 20MEQ/PACKET PO NR (15:05)
[2025-01-13] VITALS (7 sets, daily range): BP systolic 109–140; BP diastolic 69–82; PULSE 67–97; RESP 16–24; TEMP 36.2–36.8; O2SAT 93–99
[2025-01-13 00:20] LABS: BASOPHILS % 0.3 % (0.0-2.0); EOSINOPHILS % 0.1 % (0.0-5.0); HEMATOCRIT. 27.3 % (42.0-52.0); HEMOGLOBIN. 8.9 g/dL (14.0-18.0); LYMPHOCYTES % 7.1 % (20.0-50.0); MEAN CORPUSCULAR HEMOGLOBIN 30.8 pg (28.0-32.0); MEAN CORPUSCULAR HGB CONC 32.5 g/dL (31.0-37.0); MEAN CORPUSCULAR VOLUME 94.7 fL (80.0-94.0); MONOCYTES % 6.9 % (2.0-8.0); NEUTROPHILS % 85.6 % (40.0-76.0); PLATELET 291 x1000/uL (130-400); RED BLOOD CELL COUNT 2.88 mill/uL (4.7-6.1); RED CELL DISTRIBUTION WIDTH 16.6 % (11.6-14.6)
[2025-01-13 00:23] LABS: POTASSIUM 3.6 mEq/L (3.5-5.1)
[2025-01-13 00:24] LABS: CALCIUM 8.9 mg/dL (8.7-10.4)
[2025-01-13 00:57] LABS: CREATININE 8.1 mg/dL (0.6-1.3)
[2025-01-14] VITALS (10 sets, daily range): BP systolic 111–147; BP diastolic 65–79; PULSE 66–99; RESP 16–20; TEMP 36.1–36.6696; O2SAT 96–100
[2025-01-14 00:15] LABS: BG BASE EXCESS -3.1 mmol/L (-2.0-3.0); BG CARBOXYHEMOGLOBIN 0.9 % (0.5-1.5); BG DEOXYHEMOGLOBIN 2.7 % (0.0-5.0); BG FRACTION INSPIRED OXYGEN 28; BG HCO3 ACT 20.7 mmol/L (21.0-28.0); BG METHEMOGLOBIN 0.1 % (0.5-1.5); BG OXYGEN SATURATION 97.3 % (94.0-98.0); BG OXYHEMOGLOBIN 96.3 % (94.0-98.0); BG PH 7.429 (7.350-7.450); BG PO2 91.2 mmHg (83.0-108.0); BG SAMPLE SITE RIGHT RADIAL; BG TOTAL HEMOGLOBIN 8.4 g/dL (13.5-17.5); BG VENT MODE NASAL CANNULA
[2025-01-14 06:27] LABS: POTASSIUM 3.5 mEq/L (3.5-5.1)
[2025-01-14 06:28] LABS: CALCIUM 8.2 mg/dL (8.7-10.4)
[2025-01-14 06:33] LABS: HEMATOCRIT. 27.5 % (42.0-52.0); HEMOGLOBIN. 8.8 g/dL (14.0-18.0); LYMPHOCYTES % 10.3 % (20.0-50.0); MEAN CORPUSCULAR HEMOGLOBIN 30.4 pg (28.0-32.0); MEAN PLATELET VOLUME 8.1 fl (7.4-10.4); MONOCYTES % 8.3 % (2.0-8.0); NEUTROPHILS % 80.4 % (40.0-76.0); PLATELET 224 x1000/uL (130-400); RED BLOOD CELL COUNT 2.89 mill/uL (4.7-6.1); RED CELL DISTRIBUTION WIDTH 16.6 % (11.6-14.6); WHITE BLOOD COUNT 6.6 x1000/uL (4.5-11.0)
[2025-01-14 07:13] LABS: CREATININE 9.8 mg/dL (0.6-1.3)
[2025-01-15] VITALS (19 sets, daily range): BP systolic 113–155; BP diastolic 59–89; PULSE 60–109; RESP 14–23; TEMP 35.6–37; O2SAT 95–100
[2025-01-15] MEDS ORDERED: HYDROCODONE/ACETAMINOPHEN 5/325MG TABLET PO PRN
[2025-01-15] MEDS ORDERED: ONDANSETRON HCL 4MG/2ML INJ IV PRN
[2025-01-15] MEDS ORDERED: PANTOPRAZOLE 40MG DR TABLET PO SCH (07:20)
[2025-01-15] MEDS ORDERED: LIDOCAINE HCL 1% 10 MG/ML 10ML VIAL ONE ×2 (09:11→09:52)
[2025-01-15] MEDS ORDERED: FENTANYL CITRATE/PF 50MCG/ML 2ML VIAL ONE (09:45)
[2025-01-15] MEDS: FENTANYL CITRATE/PF 50MCG/ML 2ML VIAL IV NR (10:10)
[2025-01-16] VITALS (15 sets, daily range): BP systolic 111–152; BP diastolic 60–81; PULSE 66–82; RESP 16–18; TEMP 35.9–36.6; O2SAT 96–99
[2025-01-16 06:48] LABS: POTASSIUM 3.6 mEq/L (3.5-5.1)
[2025-01-16 06:50] LABS: CALCIUM 7.9 mg/dL (8.7-10.4)
[2025-01-16 06:53] LABS: BASOPHILS % 0.6 % (0.0-2.0); EOSINOPHILS % 0.2 % (0.0-5.0); HEMATOCRIT. 24.2 % (42.0-52.0); HEMOGLOBIN. 7.8 g/dL (14.0-18.0); LYMPHOCYTES % 13.4 % (20.0-50.0); MEAN CORPUSCULAR HEMOGLOBIN 30.5 pg (28.0-32.0); MEAN CORPUSCULAR HGB CONC 32.4 g/dL (31.0-37.0); MEAN CORPUSCULAR VOLUME 94.2 fL (80.0-94.0); MEAN PLATELET VOLUME 7.8 fl (7.4-10.4); MONOCYTES % 6.8 % (2.0-8.0); PLATELET 187 x1000/uL (130-400); RED BLOOD CELL COUNT 2.57 mill/uL (4.7-6.1); RED CELL DISTRIBUTION WIDTH 16.5 % (11.6-14.6); WHITE BLOOD COUNT 4.3 x1000/uL (4.5-11.0)
[2025-01-16 07:20] LABS: CREATININE 10.8 mg/dL (0.6-1.3)
[2025-01-16] MEDS: PNEUMOCOCCAL 20-VAL CONJ-DIP CRM 0.5ML IM ONE (11:28)
[2025-01-16] MEDS: FUROSEMIDE 40MG TABLET PO SCH (17:16)
[2025-01-17] VITALS: BP 140/71; PULSE 70; RESP 19; TEMP 36.2; O2SAT 96
[2025-01-17] MEDS: HYDROCODONE/ACETAMINOPHEN 5/325MG TABLET PO PRN (01:02)
[2025-01-17 04:00] VITALS: BP 102/60; PULSE 71; RESP 18; TEMP 36.1; O2SAT 96
[2025-01-17 08:00] VITALS: BP 137/69; PULSE 63; RESP 20; TEMP 36.3; O2SAT 99
[2025-01-17] MEDS ORDERED: LIDOCAINE HCL 1% 10 MG/ML 10ML VIAL ONE (08:02)
[2025-01-17 12:00] VITALS: BP 145/61; PULSE 60; RESP 20; TEMP 36.2; O2SAT 100
[2025-01-17 16:00] VITALS: BP 148/63; PULSE 65; RESP 18; TEMP 36.3; O2SAT 99
[2025-01-17 20:00] VITALS: BP 139/76; PULSE 75; RESP 19; TEMP 36.2; O2SAT 98
[2025-01-17] MEDS: EPOETIN ALFA-EPBX 4,000 UNIT/ML VIAL SUBCUT SCH (21:00)
[2025-01-18] VITALS: BP 143/85; PULSE 75; RESP 20; TEMP 36.4; O2SAT 98
[2025-01-18 04:00] VITALS: BP 154/77; PULSE 66; RESP 19; TEMP 36.4; O2SAT 97
[2025-01-18 08:00] VITALS: BP 140/73; PULSE 61; RESP 19; TEMP 36.5; O2SAT 97
[2025-01-18 11:03] LABS: BASOPHILS % 0.7 % (0.0-2.0); EOSINOPHILS % 1.4 % (0.0-5.0); HEMATOCRIT. 23.2 % (42.0-52.0); HEMOGLOBIN. 7.7 g/dL (14.0-18.0); MEAN CORPUSCULAR HEMOGLOBIN 30.6 pg (28.0-32.0); MEAN CORPUSCULAR HGB CONC 33.1 g/dL (31.0-37.0); MEAN CORPUSCULAR VOLUME 92.5 fL (80.0-94.0); MEAN PLATELET VOLUME 7.8 fl (7.4-10.4); MONOCYTES % 8.4 % (2.0-8.0); NEUTROPHILS % 70.5 % (40.0-76.0); PLATELET 210 x1000/uL (130-400); WHITE BLOOD COUNT 3.7 x1000/uL (4.5-11.0)
[2025-01-18 11:18] LABS: CHLORIDE 99 mEq/L (98-107); POTASSIUM 3.1 mEq/L (3.5-5.1); SODIUM 136 mEq/L (136-145)
[2025-01-18 11:19] LABS: CARBON DIOXIDE 24 mEq/L (21-32)
[2025-01-18 11:24] LABS: GLUCOSE 112 mg/dL (70-105); UREA NITROGEN BLOOD 58 mg/dL (9-23)
[2025-01-18 12:00] VITALS: BP 111/78; PULSE 71; RESP 18; TEMP 36.3; O2SAT 90
[2025-01-18 12:11] LABS: CREATININE 10.8 mg/dL (0.6-1.3)
[2025-01-18 12:17] LABS: IRON 21 ug/dL (65-175); TOTAL IRON BINDING CAPACITY 630 ug/dl (250-425)
[2025-01-18] MEDS: POTASSIUM CHLORIDE 20MEQ TABLET SR PO NR (13:09)
[2025-01-18 16:00] VITALS: BP 102/69; PULSE 72; RESP 18; TEMP 36.5; O2SAT 95
[2025-01-18] MEDS ORDERED: [UNRECOGNIZED DRUG - REMARK] XX SCH (16:30)
[2025-01-18] MEDS: CEFAZOLIN 1000MG PREMIX 50 ML IV SCH (17:44)
[2025-01-18 18:00] LABS: PHOSPHORUS 5.9 mg/dL (2.5-4.9)
[2025-01-18 20:00] VITALS: BP 114/75; PULSE 74; RESP 20; TEMP 36.1; O2SAT 94
[2025-01-19] VITALS (14 sets, daily range): BP systolic 105–167; BP diastolic 63–88; PULSE 60–72; RESP 14–20; TEMP 36–36.50292; O2SAT 96–100
[2025-01-20] VITALS: BP 117/70; PULSE 84; RESP 22; TEMP 37.2; O2SAT 99
[2025-01-20 04:00] VITALS: BP 105/69; PULSE 77; RESP 20; TEMP 36.9; O2SAT 97
[2025-01-20 06:43] LABS: CHLORIDE 108 mEq/L (98-107); POTASSIUM 3.8 mEq/L (3.5-5.1); SODIUM 143 mEq/L (136-145)
[2025-01-20 06:44] LABS: CALCIUM 7.8 mg/dL (8.7-10.4); CARBON DIOXIDE 24 mEq/L (21-32)
[2025-01-20 06:49] LABS: GLUCOSE 115 mg/dL (70-105); UREA NITROGEN BLOOD 50 mg/dL (9-23)
[2025-01-20 06:50] LABS: ALANINE AMINOTRANSFERASE < 7 IU/L (10-49)
[2025-01-20 06:51] LABS: ALBUMIN 2.5 g/dL (3.2-4.8); ASPARTATE AMINOTRANSFERASE 112 IU/L (<34); BILIRUBIN DIRECT < 0.1 mg/dL (<=3.0); BILIRUBIN TOTAL < 0.2 mg/dL (0.1-1.0); PROTEIN TOTAL 5.4 g/dL (6.0-8.3)
[2025-01-20 07:18] LABS: CREATININE 10.2 mg/dL (0.6-1.3)
[2025-01-20 07:58] LABS: BASOPHILS % 0.7 % (0.0-2.0); EOSINOPHILS % 2.3 % (0.0-5.0); HEMATOCRIT. 23.3 % (42.0-52.0); HEMOGLOBIN. 7.5 g/dL (14.0-18.0); LYMPHOCYTES % 16.8 % (20.0-50.0); MEAN CORPUSCULAR HEMOGLOBIN 30.1 pg (28.0-32.0); MEAN CORPUSCULAR HGB CONC 32.1 g/dL (31.0-37.0); MEAN CORPUSCULAR VOLUME 93.6 fL (80.0-94.0); MEAN PLATELET VOLUME 7.7 fl (7.4-10.4); MONOCYTES % 11.5 % (2.0-8.0); NEUTROPHILS % 68.7 % (40.0-76.0); PLATELET 238 x1000/uL (130-400); RED BLOOD CELL COUNT 2.48 mill/uL (4.7-6.1); RED CELL DISTRIBUTION WIDTH 16.3 % (11.6-14.6)
[2025-01-20 08:00] VITALS: BP_SYST 104; BP_SYST 144; BP_DIAS 78; BP_DIAS 81; PULSE 98; RESP 16; RESP 17; TEMP 36.2; O2SAT 97; O2SAT 98
[2025-01-20 12:00] VITALS: BP 134/78; PULSE 73; RESP 19; TEMP 36.2; O2SAT 99
[2025-01-20 16:00] VITALS: BP 130/76; PULSE 75; RESP 18; TEMP 36.3; O2SAT 100
[2025-01-20 20:00] VITALS: BP 168/81; PULSE 62; RESP 20; TEMP 36.6; O2SAT 100
[2025-01-21] VITALS (15 sets, daily range): BP systolic 110–174; BP diastolic 60–86; PULSE 59–83; RESP 15–20; TEMP 35.9–36.78072; O2SAT 97–100
[2025-01-21 06:51] LABS: POTASSIUM 3.9 mEq/L (3.5-5.1)
[2025-01-21 06:52] LABS: CALCIUM 8.7 mg/dL (8.7-10.4)
[2025-01-21 07:12] LABS: CREATININE 11.6 mg/dL (0.6-1.3)
[2025-01-21 07:17] LABS: BASOPHILS % 0.9 % (0.0-2.0); EOSINOPHILS % 3.2 % (0.0-5.0); HEMATOCRIT. 24.9 % (42.0-52.0); LYMPHOCYTES % 11.1 % (20.0-50.0); MEAN CORPUSCULAR HEMOGLOBIN 29.7 pg (28.0-32.0); MEAN PLATELET VOLUME 7.2 fl (7.4-10.4); MONOCYTES % 9.3 % (2.0-8.0); NEUTROPHILS % 75.5 % (40.0-76.0); PLATELET 253 x1000/uL (130-400); RED BLOOD CELL COUNT 2.68 mill/uL (4.7-6.1); RED CELL DISTRIBUTION WIDTH 16.7 % (11.6-14.6); WHITE BLOOD COUNT 4.9 x1000/uL (4.5-11.0)
[2025-01-21] MEDS: EPOETIN ALFA-EPBX 4,000 UNIT/ML VIAL SUBCUT SCH (21:11)
[2025-01-22] VITALS: BP 170/66; PULSE 86; RESP 14; TEMP 36.4; O2SAT 98
[2025-01-22] MEDS: HYDROCODONE/ACETAMINOPHEN 5/325MG TABLET PO NR (05:56)
[2025-01-22 08:00] VITALS: BP 121/59; PULSE 98; RESP 20; TEMP 36.1; O2SAT 100
[2025-01-22 12:00] VITALS: BP 115/76; PULSE 71; RESP 20; TEMP 36.2; O2SAT 96
[2025-01-22 16:00] VITALS: BP 131/68; PULSE 89; RESP 20; TEMP 36; O2SAT 95
[2025-01-22 20:00] VITALS: BP 129/58; PULSE 81; RESP 18; TEMP 36.5; O2SAT 97
[2025-01-22 21:08] VITALS: BP 129/58; PULSE 81; RESP 18; TEMP 36.5; O2SAT 97
[2025-01-23] VITALS (15 sets, daily range): BP systolic 94–151; BP diastolic 52–80; PULSE 61–102; RESP 16–21; TEMP 36.3–36.61404; O2SAT 96–100
[2025-01-23] MEDS: HYDROCODONE/ACETAMINOPHEN 5/325MG TABLET PO PRN (00:30)
[2025-01-23] MEDS: FOLIC ACID/VITAMIN B COMP W-C TABLET PO SCH (10:37)
== END 2025-01-23 21:05 | DRG 871 ==
LOC: ER 10:51 → 5WST 14:01 → EDBEDREQ 14:03 → 5EST 01-03 23:36 → 6WST 01-11 13:55 → 6EST 01-20 11:01
PROVIDERS: ADMIT Internal Medicine; ATTEND Internal Medicine
PROC: 02HV33Z Insertion of Infusion Device into Superior Vena Cava, Percutaneous Approach (ICD-10-PCS; 2025-01-04)
PROC: B548ZZA Ultrasonography of Superior Vena Cava, Guidance (ICD-10-PCS; 2025-01-04)
PROC: 5A1D70Z Performance of Urinary Filtration, Intermittent, Less than 6 Hours Per Day (ICD-10-PCS; 2025-01-04)
PROC: 5A1D70Z Performance of Urinary Filtration, Intermittent, Less than 6 Hours Per Day (ICD-10-PCS; 2025-01-05)
PROC: 02HV33Z Insertion of Infusion Device into Superior Vena Cava, Percutaneous Approach (ICD-10-PCS; principal; 2025-01-07)
PROC: B548ZZA Ultrasonography of Superior Vena Cava, Guidance (ICD-10-PCS; 2025-01-07)
PROC: 5A1D70Z Performance of Urinary Filtration, Intermittent, Less than 6 Hours Per Day (ICD-10-PCS; 2025-01-07)
PROC: 5A1D70Z Performance of Urinary Filtration, Intermittent, Less than 6 Hours Per Day (ICD-10-PCS; 2025-01-09)
PROC: 5A1D70Z Performance of Urinary Filtration, Intermittent, Less than 6 Hours Per Day (ICD-10-PCS; 2025-01-12)
PROC: 5A1D70Z Performance of Urinary Filtration, Intermittent, Less than 6 Hours Per Day (ICD-10-PCS; 2025-01-14)
PROC: 02PYX3Z Removal of Infusion Device from Great Vessel, External Approach (ICD-10-PCS; 2025-01-15)
PROC: 02HV33Z Insertion of Infusion Device into Superior Vena Cava, Percutaneous Approach (ICD-10-PCS; 2025-01-15)
PROC: 0JH63XZ Insertion of Tunneled Vascular Access Device into Chest Subcutaneous Tissue and Fascia, Percutaneous Approach (ICD-10-PCS; 2025-01-15)
PROC: B5181ZA Fluoroscopy of Superior Vena Cava using Low Osmolar Contrast, Guidance (ICD-10-PCS; 2025-01-15)
PROC: B548ZZA Ultrasonography of Superior Vena Cava, Guidance (ICD-10-PCS; 2025-01-15)
PROC: 5A1D70Z Performance of Urinary Filtration, Intermittent, Less than 6 Hours Per Day (ICD-10-PCS; 2025-01-16)
PROC: 02HV33Z Insertion of Infusion Device into Superior Vena Cava, Percutaneous Approach (ICD-10-PCS; 2025-01-17)
PROC: B548ZZA Ultrasonography of Superior Vena Cava, Guidance (ICD-10-PCS; 2025-01-17)
PROC: 5A1D70Z Performance of Urinary Filtration, Intermittent, Less than 6 Hours Per Day (ICD-10-PCS; 2025-01-19)
PROC: 5A1D70Z Performance of Urinary Filtration, Intermittent, Less than 6 Hours Per Day (ICD-10-PCS; 2025-01-21)
PROC: 5A1D70Z Performance of Urinary Filtration, Intermittent, Less than 6 Hours Per Day (ICD-10-PCS; 2025-01-23)
DX: A41.01 Sepsis due to Methicillin susceptible Staphylococcus aureus (principal); G92.8 Other toxic encephalopathy; J85.2 Abscess of lung without pneumonia; N18.6 End stage renal disease; I12.0 Hypertensive chronic kidney disease with stage 5 chronic kidney disease or end stage renal disease; I47.10 Supraventricular tachycardia, unspecified; E87.20 Acidosis, unspecified; E87.5 Hyperkalemia; E87.70 Fluid overload, unspecified; E66.01 Morbid (severe) obesity due to excess calories; D64.9 Anemia, unspecified; R53.81 Other malaise; R79.89 Other specified abnormal findings of blood chemistry; E78.5 Hyperlipidemia, unspecified; N40.0 Benign prostatic hyperplasia without lower urinary tract symptoms; I27.20 Pulmonary hypertension, unspecified; B19.20 Unspecified viral hepatitis C without hepatic coma; M47.816 Spondylosis without myelopathy or radiculopathy, lumbar region; M48.02 Spinal stenosis, cervical region; S30.1XXA Contusion of abdominal wall, initial encounter; G89.29 Other chronic pain; Z99.2 Dependence on renal dialysis; Z79.01 Long term (current) use of anticoagulants; Z79.899 Other long term (current) drug therapy; Z86.718 Personal history of other venous thrombosis and embolism; Z91.199 Patient's noncompliance with other medical treatment and regimen due to unspecified reason; X58.XXXA Exposure to other specified factors, initial encounter; Y93.89 Activity, other specified; Y92.89 Other specified places as the place of occurrence of the external cause; Y99.8 Other external cause status
CPT/HCPCS: 36415; 36556; 36573; 36589; 36600; 71045; 71250; 74176; 76937; 77001; 80048; 80053; 80076; 80202; 80305; 80320; 81003; 82140; 82375; 82550; 82805; 82962; 83540; 83550; 83605; 83735; 83880; 84100; 84145; 84484; 85025; 85027; 85651; 86705; 86709; 86850; 86900; 87077; 87186; 87340; 90732; 90935; 92610; 93005; 93306; 93312; 94070; 94640; 94760; 97162; 97166; 97530; 99152; 99153; 99291; A4606; C1725; C1752; C1769; J0282; J0610; J0690; J0885; J1642; J1644; J1815; J1940; J2003; J2060; J2250; J2270; J2470; J2543; J3010; J3370; J3490; J7042; J7050; J7060; P9047; Q9967; G0480; G0500